=== PATIENT | female | born 1995 | race African-American/Black ===

== ENCOUNTER 2023-12-15 15:11 | Outpatient (CLI) | payer OTHER ==
--- NOTE | 2023-12-15 20:10 | Ultrasound Report ---
PROCEDURE: Pelvic w/Transvaginal INDICATIONS: DYSMENORRHEA TECHNIQUE: Real-time scanning was performed of the pelvic organs, with image documentation. Additional endovagi nal scanning was necessary due to incomplete visualization of the adnexal and endometrial structures by transabdominal scanning. COMPARISON: None. FINDINGS: Uterus: Uterus is anteverted and normal in size at 7.3 x 3.3 x 5.2 cm. The myometrium is homogeneou s. The endometrium measures 14 mm in combined thickness. Ovaries: The right ovary measures 4.2 x 2.2 x 3.6 cm, with a calculated ovarian volume of 17.5 cc. The left ovary measures 3.4 x 1.8 x 1.6 cm, with a calculated ovarian volume of 5.1 cc. The ovaries have a normal sonographic appearance. Greater than 12 follicles can be seen in each ovary. A domina nt right ovarian follicle measures up to 1.8 cm. No adnexal masses are seen. No cystic lesions measur ing greater than 3 cm. Other: No pathologic free abdominal or pelvic fluid. IMPRESSION: Greater than 12 small follicles are seen in each ovary, which can be seen in the setting of polycysti c ovarian syndrome when associated with appropriate clinical and laboratory findings. Reviewed by: Martir Olivas MD on 12/15/2023 8:09 PM PDT Approved by: Martir Olivas MD on 12/15/2023 8:09 PM PDT Station ID: [id number]
== END 2023-12-15 15:12 | disposition home or self-care (01) ==
LOC: DI 15:11
DX: N94.6 Dysmenorrhea, unspecified (principal)